=== PATIENT | female | born 1995 | race Caucasian/White ===

== ENCOUNTER 2019-08-03 17:11 | Emergency (ER) | payer MEDICAID ==
[~2019-08-03] VITALS: Ht 165.1 cm; Wt 80.0 kg
[2019-08-03 17:32] VITALS: BP 124/81
[2019-08-03] MEDS ORDERED: ACYCLOVIR 400 MG TABLET PO ONE (18:00)
== END 2019-08-03 18:25 | disposition home or self-care (01) ==
LOC: ER 17:11
DX: B00.9 Herpesviral infection, unspecified (principal); Z76.0 Encounter for issue of repeat prescription
CPT/HCPCS: 99283